=== PATIENT | male | born 1975 | race Caucasian/White ===

== ENCOUNTER 2019-11-02 08:20 | Outpatient (CLI) | payer OTHER, SELFPAY ==
[2019-11-02 09:17] LABS: Alanine Aminotransferase 33 U/L (4-50); Albumin Level 4.3 g/dL (3.5-5.1); Alkaline Phosphatase 57 U/L (38-126); Aspartate Amino Transferase 31 U/L (17-59); Bilirubin,Total 0.6 mg/dL (0.2-1.3); Blood Urea Nitrogen 27 mg/dL (9-20); Carbon Dioxide 26 mmol/L (22-30); Chloride 106 mmol/L (98-107); Cholesterol 229 mg/dL (0-200); Estimated Glomerular Filt Rate > 60; Glucose 95 mg/dL (75-110); HDL Direct 28 mg/dL; Potassium 3.9 mmol/L (3.4-5.0); Sodium 139 mmol/L (137-145); Triglycerides 216 mg/dL (<150)
[2019-11-02 09:34] LABS: LDL Cholesterol Direct 143 mg/dL
[2019-11-02 09:54] LABS: Prostate Specific Antigen 0.3 ng/mL (< OR = 4.0)
[2019-11-08 14:41] LABS: Testosterone Total 426 ng/dL (250-1100)
== END 2019-11-02 08:21 | disposition home or self-care (01) ==
LOC: ANHLAB 08:21
PROVIDERS: PCP Family Medicine; Visit Provider Physician Assistant Medical
DX: E78.2 Mixed hyperlipidemia (principal); Z12.5 Encounter for screening for malignant neoplasm of prostate; R53.83 Other fatigue
CPT/HCPCS: 36415; 80053; 80061; 84153; 84403; G0103

== ENCOUNTER 2023-06-13 11:12 | Emergency (ER) | payer OTHER, SELFPAY ==
[2023-06-13 11:40] VITALS: BP 133/77; PULSE 77; RESP 20; TEMP 36.6; O2SAT 97
--- NOTE | 2023-06-13 11:55 | ED.URI ---
HPI - URI/Sore Throat General Chief Complaint: Upper Respiratory Infection Stated Complaint: Fever,Chest Congestion,Cough Time Seen by Provider: 06/13/23 11:59 Source: patient, RN notes reviewed and old records reviewed Mode of arrival: ambulatory Limitations: no limitations History of Present Illness HPI Narrative: 48-year-old male presents to the [facility] with complaints fever, chest congestion and cough started on Thursday, 4 days ago. Reports taking Tylenol flu. Denies chest pain shortness breath. Denies abdominal pain Related Data Home Medications Medication Instructions Recorded Confirmed rosuvastatin 20 mg tablet (Crestor) 20 mg PO DAILY 05/28/21 06/13/23 Allergies Allergy/AdvReac Type Severity Reaction Status Date / Time Penicillins AdvReac Mild Rash Verified 06/13/23 11:34 Review of Systems Review of Systems: All systems reviewed & are unremarkable except as noted in HPI and below Constitutional: Constitutional: Reports as per HPI, Reports body ache(s), Reports fatigue, Reports fever(s) and Reports headache(s) Eyes: Eyes: Reports no additional eye complaints ENT: Reports as per HPI and Reports nasal congestion Cardiovascular: Cardiovascular: Reports no additional cardiovascular complaints, Denies chest pain and Denies dyspnea Respiratory: Respiratory: Reports as per HPI, Denies chest congestion, Reports cough and Denies dyspnea Gastrointestinal: Gastrointestinal: Reports no additional gastrointestinal complaints, Denies abdominal pain, Denies nausea and Denies vomiting Musculoskeletal: Musculoskeletal: Reports no additional musculoskeletal complaints Integumentary/Breasts: Skin/Breast: Reports system reviewed and no additional complaints, except as docu Neurologic: Reports system reviewed and no additional complaints, except as documented Psychiatric: Psychiatric: Reports no additional psychiatric complaints Allergic/Immunologic: Allergic/Immunologic: Reports no additional allergic/immunologic complaints [facility] Past Medical History Medical History BMI 36.0-36.9,adult BMI over 35 Hay fever Suprapubic pain Family History Family History Father Family history of heart disease in male family member before age 55 Hypertension Acute myocardial infarction Mother MYLK2-related hypertropic cardiomyopathy Sibling No problems noted. 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 Gender identity (if verbalized by the patient): Male Sexual Orientation (if Verbalized by the Patient): Straight or Heterosexual Spiritual care concerns: No Agree to blood products: Yes Comments At the time of my signature, I reviewed and agree with the nursing past medical, surgical, social, and family history. There is no relevant family history pertinent to the patient complaint. Exam Const: General: cooperative, healthy appearing, comfortable, no acute distress, well developed, alert and well nourished Nutritional Appearance: well nourished Orientation/consciousness: patient oriented x3 Limitations: no limitations HENMT: Head: normal to inspection Ears: hearing grossly normal bilaterally, external ears normal, TM's normal bilaterally, EAC's normal, mastoids normal and no periauricular adenopathy Face/Nose/Sinus: Normal external nose present, Normal nares present, Normal nasal mucous membranes and turbinates prese
== END 2023-06-13 12:08 | disposition home or self-care (01) ==
PROVIDERS: Emergency Provider Nurse Practitioner; PCP Family Medicine
DX: J10.1 Influenza due to other identified influenza virus with other respiratory manifestations (principal); Z20.822 Contact with and (suspected) exposure to COVID-19
CPT/HCPCS: 87426; 87804; 99213; G0463

== ENCOUNTER 2024-09-23 12:21 | Outpatient (CLI) | payer OTHER, SELFPAY ==
--- NOTE | ~2024-09-23 | XR_ITS ---
XR hand LT 2V 09/23/2024 12:40 INDICATION: Left hand pain PROCEDURE: 3 views left hand COMPARISON: No prior studies for comparison. FINDINGS: Fracture, dislocation or subluxation is not identified. The soft tissues appear within norm al limits. No foreign bodies are identified. IMPRESSION: 1: NO ACUTE BONE OR JOINT ABNORMALITY IDENTIFIED. Reviewed, dictated and finalized at location A.
--- OUTSIDE RECORDS SUMMARY | 2024-09-23 12:25 | XMS_ITS | Clinical Summary ---
Author Organization [facility] Address [address] [place] [address] Care Team Providers Care Film Splicer Name Role Phone Alexandr Logan MD Primary Care Provider + [phone] Allergies Active Allergy Reactions Criticality Noted Date Comments Penicillins Hives Medium Medications ibuprofen (ADVIL,MOTRIN) 600 mg tablet Take 1 tablet (600 mg total) by mouth every 6 (six) hours as needed for pain Active multivitamin capsuleIndicati ons:Vitamin Deficiency Prevention Take 1 capsule by mouth every morning Active cyanocobalamin (Vitamin B-12) 1,000 mcg tabletIndicatio ns:Prevention of Vitamin B12 Deficiency Take 1 tablet (1,000 mcg total) by mouth every morning Active omeprazole (PriLOSEC) 20 mg capsule Take 1 capsule (20 mg total) by mouth daily As needed Active rosuvastatin (CRESTOR) 10 mg tablet TAKE 1 TABLET(10 MG) BY MOUTH DAILY 90 tablet 1 3 Active amLODIPine (NORVASC) 2.5 mg tablet TAKE 1 TABLET(2.5 MG) BY MOUTH DAILY 30 tablet 11 3 Active benzonatate (TESSALON) 200 mg capsuleIndicati ons:Acute cough Take 1 capsule (200 mg total) by mouth 3 (three) times a day as needed for cough keep tessalon out of reach of children, especially children under the age of 10, due to possible serious risk such as if ingested by children under the age of 10. 30 capsule 4 Active albuterol HFA (PROVENTIL HFA,VENTOLIN HFA,PROAIR HFA) 90 mcg/actuation inhalerIndicati ons:History of wheezing Inhale 2 puffs every 6 (six) hours as needed for wheezing 1 each 4 04/18/20 25 Active Active Problems Problem Noted Date Diagnosed Date Primary hypertension 09/08/2022 Assessment & Plan (09/08/2022 8:35 AM CDT): SBP controlled today. Continue Norvasc 2.5 mg daily. Log BP at home, I have asked him to notify us if his SBP is consistently greater than 140 at home. We can double his Norvasc to 5 mg if needed. Sleep apnea 09/08/2022 Assessment & Plan (09/08/2022 8:36 AM CDT): Needs updated WIN therapy prescription. Hyperlipidemia 09/08/2022 Assessment & Plan (09/08/2022 8:38 AM CDT): LDL optimal in December 2021 at 77. Continue Crestor 10 mg daily. Mass of left hand 12/11/2017 Overview (12/11/2017): Added automatically from request for surgery [id number] Neoplasm of connective and soft tissue 8 Cardiomyopathy 02/23/2012 Medical History Medical History Date Comments Hyperlipidemia Sleep apnea Family History Medical History Relation Name Comments Heart attack Father Heart attack Father's Sister Heart disease Mother Relation Name Status Comments Father Father's Sister Mother Social History Tobacco Use Types Packs/Day Years Used Date Smoking Tobacco: Never Smokeless Tobacco: Never Alcohol Use Standard Drinks/Week Comments Yes 4 (1 standard drink = 0.6 oz pur e alcohol) Sex and Gender Information Value Date Recorded Sex Assigned at Not on file Legal Sex 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 Gender Identity Not on file Sexual Orientation Not on file Obstetrics History Last Filed Vital Signs Vital Sign Reading Time Taken Comments Blood Pressure 136/78 04/18/2024 8:19 AM EXTRACTOR MACHINE OPERATOR Pulse 75 04/18/2024 8:19 AM EXTRACTOR MACHINE OPERATOR Temperature 37.1 C (98.8 F) 04/18/2024 8:19 AM EXTRACTOR MACHINE OPERATOR Respiratory Rate 24 04/18/2024 8:19 AM EXTRACTOR MACHINE OPERATOR Oxygen Saturation 96% 04/18/2024 8:19 AM EXTRACTOR MACHINE OPERATOR Inhaled Oxygen Concentration - - Weight 125.2 kg (276 lb) 04/18/2024 8:19 AM EXTRACTOR MACHINE OPERATOR Height 182.9 cm (6') 09/08/2022 8:17 AM CDT Body Mass Index 37.43 09/08/2022 8:17 AM CDT Plan of Treatment Health Maintenance Due Date Last Done Comments Colon Cancer Screening-Colonoscopy 1977 Depression Screening 1977 Hepatitis C Screening 1977 DTaP/Tdap/Td Vaccine (1 - Tdap) 1988 Hepatitis B Screening 1995 Regular Well Visit/Exam 18-64 1995 Influenza Vaccine (Season Ended) 2024 Pneumococcal vaccine <65 Aged Out No longer eligible based on patient's age to complete this topic Insurance [facility] Address: [address] [address] [place] [address] [facility] OPEN [facility]ESS [facility]PP[facility] Address: [address] [place]RO[place] Escobar [address] [facility] H[facility]/PPO Address: [facility] [id number] [place] [id number] [facility] CHOICE PLUS [facility] Address: [address] [address] [place] [address] CHOICE PLUS [facility] H[facility]/PPO Address: [address] [address] [place] [address] Advance Directives For more information, please contact: [phone] * Full Code (Latest Code Status on File) Date Activated Date Inactivated Comments 12/31/2017 10:22 AM 12/31/2017 3:52 PM Care Teams Film Splicer Relationship Specialty Start Date End Date Alexandr Logan MD PCP - General Family Medicine 11/30/17
--- OUTSIDE RECORDS SUMMARY | 2024-09-23 12:25 | XMS_ITS | Clinical Summary ---
Author Organization [facility] Address [address] [place] [address] Care Team Providers Care Senior Ios Software Engineer Name Role Phone Alexandr Logan MD Primary Care Provider [phone] Source Comments [facility],non-owned Affiliates and Associated Physician Practices is amultiple site organization consisting of ambulatory clinics and hospital sitesin [place], [place], [place] and [place]. This disclosure is being madepursuant to the Care Everywhere program and may not contain all information available regarding this patient. Last updated 18.[facility] Allergies Active Allergy Reactions Criticality Noted Date Comments Penicillins Rash Medium 02/13/2018 Medications * Be aware that medications may not be up to date on this document. Alwaysverify current medications with the patient. amLODIPine (Norvasc) 2.5 MG tablet Take 1 (one) tablet by mouth once daily 08/01/2024 Active rosuvastatin (Crestor) 20 MG tablet Take 1 (one) tablet by mouth once daily 08/01/2024 Active Active Problems No known active problems Encounters Date Type Department Care Team Description 08/10/2024 10:00 AM CDT Office Visit [facility] - [facility] Services [address] [place] [address] Pardeep Flaherty MD Vitamin D deficiency (Primary Dx); Screening for diabetes mellitus; Hypertriglyceridemia; Fatigue, unspecified type 08/10/2024 Travel from Last 3 Months Family History Medical History Relation Name Comments Sleep Disorder - Sleep apnea Daughter awaiting CPAP Sleep Disorder - Other Father snore d a lot Sleep Disorder - Other Mother RLS Relation Name Status Comments Daughter Alive Father Alive Mother Social History Tobacco Use Types Packs/Day Years Used Date Smoking Tobacco: Never Smokeless Tobacco: Never Tobacco Cessation:Counseling Given: Not Answered Alcohol Use Standard Drinks/Week Comments Yes 2 (1 standard drink = 0.6 oz pur e alcohol) Sex and Gender Information Value Date Recorded Sex Assigned at Not on file Legal Sex Male 12:36 PM CDT Gender Identity Not on file Sexual Orientation Not on file 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 Not on file Not on file Last Filed Vital Signs Vital Sign Reading Time Taken Comments Blood Pressure 184/78 08/10/2024 10:40 AM CDT Pulse 94 08/10/2024 10:40 AM CDT Temperature 36.7 C (98 F) 02/12/2018 12:43 PM CDT Respiratory Rate 20 02/12/2018 12:43 PM CDT Oxygen Saturation - - Inhaled Oxygen Concentration - - Weight 115.7 kg (255 lb) 08/10/2024 10:40 AM CDT Height 182.9 cm (6') 08/10/2024 10:40 AM CDT Body Mass Index 34.58 08/10/2024 10:40 AM CDT Plan of Treatment Upcoming Encounters Date Type Department Care Team (Late st Contact Info) Description 10/06/2024 10:00 AM CDT Office Visit [facility] - [facility] [address] [place] [address] Pardeep Flaherty MD [address] [facility] [address]L DIV OF PULMONARY/[place] [address] Health Maintenance Due Date Last Done Comments COLOGUARD (AGES 45-75) - COL ON CA SCREENING 1977 COLON MONITORING 1977 COLONOSCOPY - COLON CA SCREENING 1977 CT COLONOGRAPHY - COLON CA SCREENING 1977 Colorectal Cancer Screening 1977 FIT - COLON CA SCREENING 1977 FLEX SIG - COLON CA SCREENING 1977 HIV SCREENING 1992 HEPATITIS C SCREENING 04/03/1995 DTAP/TDAP/TD VACCINES (1 - Tdap) 1996 HEPATITIS B VACCINE (1 of 3 - 19+ 3-dose series) 1996 COVID-19 VACCINE (1 - 2023-2 5 season) 2023 DEPRESSION SCREENING 04/20/2024 SCREENING FOR DIABETES 08/10/2024 INFLUENZA VACCINE (Season Ended) 2024 ZOSTER VACCINE (1 of 2) 2027 HIB VACCINE Aged Out No longer eligi ble based on patient's age to complete this topic HPV VACCINE Aged Out No longer eligi ble based on patient's age to complete this topic MENINGOCOCCAL (Group B) VACC INE SHARED DECISION-MAKING Aged Out No longer eligibl e based on patient's age to complete this topic MENINGOCOCCAL GROUPS A/C/Y/W VACCINE Aged Out No longer eligible b ased on patient's age to complete this topic PNEUMOCOCCAL VACCINE Aged Out No long er eligible based on patient's age to complete this topic Insurance [facility] Care Teams Senior Ios Software Engineer Relationship Specialty Start Date End Date Alexandr Logan MD [address] [place] [address] PCP - General Family Medicine 02/13/18
--- OUTSIDE RECORDS SUMMARY | 2024-09-23 12:25 | XMS_ITS | Referral Summary ---
Author Organization [facility] Address [address] [place] [address] Care Team Providers Care Chainstitch Seat Joiner Name Role Phone Alexandr Logan MD Primary Care Provider + [phone] Allergies Active Allergy Reactions Criticality Noted Date [...] (12/11/2017): Added automatically from request for surgery [id number] Neoplasm of connective and soft tissue 8 Cardiomyopathy 02/23/2012 Social History Tobacco Use Types Packs/Day Years Used Date Smoking Tobacco: Never Smokeless Tobacco: Never Alcohol Use Standard Drinks/Week Comments Yes 4 (1 standard drink = 0.6 oz pur e alcohol) Sex and Gender Information Value Date Recorded Sex Assigned at Not on file Legal Sex Male 4:19 AM DELI BAKERY CLERK Gender Identity Not on file Sexual Orientation Not on file Last Filed Vital Signs Vital Sign Reading Time Taken Comments Blood Pressure 136/78 04/18/2024 8:19 AM DELI BAKERY CLERK Pulse 75 04/18/2024 8:19 AM DELI BAKERY CLERK Temperature 37.1 C (98.8 F) 04/18/2024 8:19 AM DELI BAKERY CLERK Respiratory Rate 24 04/18/2024 8:19 AM DELI BAKERY CLERK Oxygen Saturation 96% 04/18/2024 8:19 AM DELI BAKERY CLERK Inhaled Oxygen Concentration - - Weight 125.2 kg (276 lb) 04/18/2024 8:19 AM DELI BAKERY CLERK Height 182.9 cm (6') 09/08/2022 8:17 AM CDT Body Mass Index 37.43 09/08/2022 8:17 AM CDT Plan of Treatment Not on file Insurance C[employer]NA OPEN ACCESS [employer] [facility] [facility] CHOICE PLUS CHOICE PLUS Advance Directives For more information, please contact: [phone] * Full Code (Latest Code Status on File) Date Activated Date Inactivated Comments 12/31/2017 10:22 AM 12/31/2017 3:52 PM Care Teams Chainstitch Seat Joiner Relationship Specialty Start Date End Date Alexandr Logan MD PCP - General Family Medicine 11/30/17
--- OUTSIDE RECORDS SUMMARY | 2024-09-23 12:26 | XMS_ITS | Continuity of Care Document ---
Author Organization [facility] Address [address] [place] [address] [place] [address] Phone Care Team Providers Care Associate Material Handler Name Role Phone Medardo Randall MD Unavailable Unavailable Procedures Procedure Date Office Consultation Advance Directives Directive Yes / No Effective Date File Name No Information Encounters Encounter Description Practice Location Reason(s) For Visit Diagnoses Date Provider Providers Copied on Encounter Office Consultation [facility], [address], [place], [place], [id number], [place] tel:[phone] [facility] No Information [address] Prakash Batres. [address] [facility] [address], [place], [place], [address], [place]. tel:[phone] Referring Provider: Alexandr Logan MD F, [address] [place], [address]. tel:[phone] Family History Family Member Type Diagnosis Age At Onset No Information Payers Payer name Insurance type Covered constitution party ID Authoriza tijyoti(s) [facility] Commercial CI [id number] Social History Type Description Quantity Date Captured Comments Sex Male Smoking Status No Information Chief Complaint And Reason For Visit No Information Reason For Referral Reason For Referral No Information History Of Present Illness Encounter Date Complaint History Of Prese nt Illness No Information Functional Status Date Functional Assessmen t No Information Instructions Date Instruction Additional Infor mation No Information Assessments Type Assessment Date No Information Patient Care Teams Name Effective Dates (start - stop) Status Members No Information
--- OUTSIDE RECORDS SUMMARY | 2024-09-23 12:26 | XMS_ITS | Data Portability ---
Author Organization [place] [facility] [place] , [facility] Address [address] [place] [address] Assessment No assessment recorded. Plan of Treatment Reminders Order Date Submit Date Provider Last Modified By Organization Details Last Modified Time Details Appointments None recorde d. Lab None recorde d. Referral None recorde d. Procedures None recorde d. Surgeries None recorde d. Imaging None recorde d. Medication Orders prometh azine-D M 6.25 mg-15 mg/5 mL oral syrup 024 04/10/20 24 [id number], [address] [place], [place], [id number], 11:48:39 Patient TargetsNo targets recorded. Patient Instructions Encounter Date Encounter Id Patient Instructions Last Modified By Organization Details Last Modified Time 04/10/2024 [id number] upper respirator y infection (cold): care instructions [id number] Not available 04/10/2024 11:48:33 Reason for Referral None Reported. Problems Name Problem SNOMED Code Status Onset Date Resolution Date Notes Provider Name and Address Organization Details Recorded Time Hypertensive disorder 13491247 Active 2019 YISSEL Messer [address], [address], [place] [facility] 11:44:53 Hyperlipidemi a 51030087 Active 2019 YISSEL Messer [address], [address], [place] [facility] 4 11:45:10 Problem Notes None recorded. Medical Equipment None Reported. Allergies Allergen ID Allergen Name Allergen Category Reaction Reaction Severity Criticality Documentation Date Start Date Code Code System Note Provider Name and Address Organization Details Recorded Time 159235 Product containin g penicilli n (product) medicatio n hives Not available Not available 04/10/20241993 18211 8001 SNOMED YISSEL Messer 1 [address], [place], [address] [facility] [place] [facility] 11:44:26 Medications Name Sig Start Date Stop Date Status Note LastModified by Organization Details LastModified Time promethazine -DM 6.25 mg-15 mg/5 mL oral syrup Take 5 mL every 4 hours by oral route for 5 days. 2023 active Not Available Not Available Not Avai lable doxycycline hyclate 100 mg capsule active Not Available Not Available N ot Available amlodipine active Not Available Not Av ailable Not Available rosuvastatin active Not Available Not Available Not Available UNLISTED MEDICATION [Migrated medication name:] Benzonatate 200 mg capsule:: active Not Available Not Available No t Available UNLISTED MEDICATION [Migrated medication name:] Albuterol 90 mcg/inh aerosol:: active Not Available Not Available No t Available Vitals None Recorded Social History None recorded. Functional Status None recorded. Mental Status None recorded. Family History Nothing Reported. Medical History No medical history recorded. Past Encounters Encounter ID Performer Location Encounter Start Date Encounter Closed Date Diagnosis/Indication Diagnosis SNOMED-CT Code Diagnosis ICD10 Code Diagnosis Note [id number] YISSEL Messer [facility] [address] [place] [address] 04/10/2024 11:33:14 04/10/2024 17:47:31 Acute upper respiratory infection 15625498 J06.9 Ibuprofen Q4-6H PRN pain/fever , max 3200 mg/dayAdeq uate hydrationA dequate restFlu testingF/U if symptoms worsen or do not resolve Health Concerns Section Related Observation LastModified by Organization Detai ls LastModified Time None Recorded Concern Status LastModified by Organization Details LastModified Time None Recorded Advance Directives Directive None Recorded Payers Insurance Date Sequence Insurance Name Policy Number Policy Delgado Covered Member ID Delgado Member ID Guarantor Name 04/10/2024 [facility] [id number] Luis Camejo [id number] Luis Camejo 04/22/2024 1 [facility] [id number] Luis Camejo [id number] Luis Camejo 04/10/2024 1 *SELF PAY* [place] Camejo 04/10/2024 3 *SELF PAY* [id number] Luis Camejo [id number] Luis Camejo 04/10/2024 2 [facility] [id number] Luis Camejo [id number] Luis Camejo Notes Date Note Type Note Provider Name and Address Organization Details Recorded Time 04/10/2024 text/html Call connected, patient greeted. Patient name, , telephone number, and location verified verbally with the patient. Telemedicine limitations reviewed, answered all questions the patient had about the telehealth interaction, and verbal consent obtained to treat. Clinician attests they are physically located in the following state at the time of visit: [place] HPI: 49 y/o male c/o fever. Highest fever 101.0 F, 100.1 F this morning. Treated with ibuprofen. Reports intermittent nasal congestion, runny nose with clear drainage, post nasal drip, throat irritation, non productive cough x 4 days. Resolved sinus headache. Denies sinus pressure, n/v/d, abdominal pain. Treated symptoms with amalia holt night time. YISSEL Messer 1 [facility] [address], [place], [address], [facility] 04/10/2024 11:54:27
== END 2024-09-23 12:22 | disposition home or self-care (01) ==
PROVIDERS: PCP Family Medicine; Referring Provider Plastic Surgery; Visit Provider Nurse Practitioner Adult Health
DX: M79.642 Pain in left hand (principal)
CPT/HCPCS: 73120

== ENCOUNTER 2024-10-05 13:48 | Outpatient (CLI) | payer OTHER, SELFPAY ==
--- NOTE | ~2024-10-05 | MR_ITS ---
MRI of the left thumb CLINICAL HISTORY: Mass, lump TECHNIQUE: Axial T1-weighted and T2 fat-sat images, coronal T1-weighted and proton-density fat-sat im ages, and sagittal T1-weighted and T2 fat-sat images were acquired. Correlation with ultrasound of the thumb performed same day. FINDINGS: Bone marrow signals are unremarkable. No fracture or bone marrow edema. Joint spaces of the thumb are intact. No joint effusion. No degenerative or erosive arthropathy. Collateral ligaments at the first MCP joint and interphalangeal joint of the thumb are intact. At the area of clinical concern as denoted by the marker, there is a dilated tubular structure measur ing up to 6 mm in diameter, and approximately 3 cm in length, suggestive of dilated venous or other v ascular structure. No other soft tissue abnormality seen. No other mass lesion or fluid collection se en. Visualized musculature unremarkable. Visualized flexor and extensor tendons are intact. IMPRESSION: Dilated tubular structure at the area of clinical concern superficially, most compatible with dilated venous or other vascular structure. This appears to correlate with sonographic findings performed to day as well. No definite soft tissue mass evident, though postcontrast imaging would be required for better evaluation for subtle soft tissue mass. Reviewed, dictated and finalized at location . IMPRESSION: Dilated tubular structure at the area of clinical concern superficially, most c ompatible with dilated venous or other vascular structure. This appears to vandana elate with sonographic findings performed today as well. No definite soft tissu e mass evident, though postcontrast imaging would be required for better evalua tion for subtle soft tissue mass.
== END 2024-10-05 13:49 | disposition home or self-care (01) ==
PROVIDERS: PCP Plastic Surgery; Visit Provider Nurse Practitioner Adult Health
DX: R22.32 Localized swelling, mass and lump, left upper limb (principal)
CPT/HCPCS: 73218

== ENCOUNTER 2024-10-05 13:51 | Outpatient (CLI) | payer OTHER, SELFPAY ==
--- NOTE | ~2024-10-05 | US_ITS ---
EXAM: Focused ultrasound examination of the soft tissues of the base of the left first digit HISTORY: left 1st webspace mass/cyst eval TECHNIQUE: Sonographic evaluation of the soft tissues of the base of the left first digit was perform ed assessing grayscale appearance and color Doppler flow. COMPARISON: None. FINDINGS: Sonographic evaluation of the soft tissues of the base of the left first digit demonstrate an irregul ar focus of mixed echogenicity with extensive vascularity. The vessels are easily compressible. IMPRESSION: Irregular focus of mixed echogenicity with extensive vascularity within the area of clinical concern. Reviewed, dictated and finalized at location A. IMPRESSION: Irregular focus of mixed echogenicity with extensive vascularity within the are a of clinical concern.
== END 2024-10-05 13:52 | disposition home or self-care (01) ==
LOC: MICIMG 13:51
PROVIDERS: PCP Plastic Surgery; Visit Provider Plastic Surgery
DX: R93.6 Abnormal findings on diagnostic imaging of limbs (principal)
CPT/HCPCS: 76882

== ENCOUNTER 2024-10-17 00:52 | Day surgery (SDC) | payer OTHER, SELFPAY ==
--- NOTE | 2024-09-22 08:56 | SUR.PREOP ---
Pt called this am to discuss changing his arrival time on October 17 due to the doctor not being available at 730. Patient voiced understand of time change and was ok with it. Message sent to office as well.
[2024-10-03 13:25] VITALS: BMI 34.7
[2024-10-17 07:20] VITALS: BP 117/88; PULSE 71; RESP 16; TEMP 36.4; O2SAT 96
[2024-10-17] MEDS: LACTATED RINGERS 1,000 ML 150 ML IV CONT (07:29)
--- NOTE | 2024-10-17 07:45 | WPDANESEPPF ---
Anes - Initial Pre Proc Eval Procedure: Operation Date: 10/17/24 08:30 Proposed Procedures p Screening Colonoscopy - Andrae Dean DO Date/Time: 10/17/24 07:45 Surgeon: Andrae Dean DO Pre Op Diagnosis: Neoplasm screening Patient Data Age: 49 Gender: M Height: 1.83 m Weight: 116.7 kg Last Vital Signs Temp 36.4 C L 10/17/24 07:20 Pulse 71 10/17/24 07:20 Resp 16 10/17/24 07:20 BP 117/88 10/17/24 07:20 Pulse Ox 96 10/17/24 07:20 O2 Del Method Room Air 10/17/24 07:20 Allergies Allergy/AdvReac Type Severity Reaction Status Date / Time Penicillins AdvReac Mild Rash Verified 10/17/24 07:17 Home Medications ?Medication ?Instructions ?Recorded ?Confirmed ?Type omeprazole 40 mg capsule,delayed 40 mg PO DAILY PRN gerd #90 caps 09/02/23 10/03/24 Rx release fluticasone propionate 50 2 spray intranasal DAILY #18 mL 02/08/24 10/17/24 Rx mcg/actuation nasal spray,suspension (Flonase Allergy Relief) albuterol sulfate 90 mcg/actuation 1 inh inhalation Q4H PRN shortness 03/24/24 10/03/24 Rx aerosol inhaler of breath or wheezing #8.5 grams amlodipine 2.5 mg tablet 2.5 mg PO DAILY #90 tabs 03/24/24 10/17/24 Rx rosuvastatin 20 mg tablet 20 mg PO DAILY #90 tabs 03/24/24 10/17/24 Rx Patient hx anesthesia problems: none Family hx anesthesia problems: none Results Review: All pre-operative results and documents have been reviewed as part of the pre-operative evaluation. [facility] Past Medical History Medical History (Updated 10/17/24 @ 07:46 by Sd Caballero MD) Mixed hyperlipidemia Obstructive sleep apnea Subcutaneous mass of left thumb Pain in left hand Encounter for screening colonoscopy Vitamin D deficiency Hay fever Suprapubic pain Family History Family History Father Family history of heart disease in male family member before age 55 Hypertension Acute myocardial infarction Mother MYLK2-related hypertropic cardiomyopathy Sibling No problems noted. 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 Gender identity (if verbalized by the patient): Male Sexual Orientation (if Verbalized by the Patient): Straight or Heterosexual Spiritual care concerns: No Agree to blood products: Yes Anes - Eval Final PreProcedure Day of Procedure 10/17/24 07:45 Patient weight: obese Heart: regular rate and rhythm Lungs: clear to auscultation Airway: Mallampati scale class II Neurological: alert and oriented Last oral intake: >/= 8 hours ASA classification: III Emergent: no Anesthetic plan: proceed Anesthesia type and monitoring: general GIVS and standard monitoring Results Review: All pre-operative results and documents have been reviewed as part of the pre-operative evaluation. Informed Consent: The patient's anesthetic plan and its attendant risks and benefits were discussed with the patient/family/POA. Questions were solicited and answers provided to the satisfaction of the patient/family/POA.
--- NOTE | 2024-10-17 08:47 | PM.IMHP ---
H&P: HPI History of Present Illness Date/Time: 10/17/24 08:47 Chief Complaint: Screening for colorectal cancer Narrative: this is a 49-year-old man who presents for colonoscopy. He had a colonoscopy about 10 years ago for stomach issues but says that was normal. He denies any hematochezia or melena. He denies any family history of colon cancer. Review of Systems Review of Systems: All systems reviewed & are unremarkable except as noted in HPI and below Constitutional: Constitutional: Denies chills, Denies fever(s), Denies headache(s) and Denies weight loss Eyes: Eyes: Denies change in vision ENT: Denies dizziness, Denies headache(s), Denies neck mass and Denies throat swelling Cardiovascular: Cardiovascular: Denies chest pain, Denies lightheadedness and Denies dyspnea Respiratory: Respiratory: Denies cough, Denies dyspnea and Denies wheezing Gastrointestinal: Gastrointestinal: Denies abdominal pain, Denies change in bowel habits, Denies nausea and Denies vomiting Genitourinary: Genitourinary: Denies hematuria and Denies dysuria Musculoskeletal: Musculoskeletal: Reports as per HPI Integumentary/Breasts: Skin/Breast: Reports as per HPI Neurologic: Denies dizziness and Denies headache(s) Allergic/Immunologic: Allergic/Immunologic: Denies throat swelling and Denies wheezing PMFSH Past Medical History Medical History (Updated 10/17/24 @ 07:46 by Sd Caballero MD) Mixed hyperlipidemia Obstructive sleep apnea Subcutaneous mass of left thumb Pain in left hand Encounter for screening colonoscopy Vitamin D deficiency Hay fever Suprapubic pain Family History Family History Father Family history of heart disease in male family member before age 55 Hypertension Acute myocardial infarction Mother MYLK2-related hypertropic cardiomyopathy Sibling No problems noted. 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 Gender identity (if verbalized by the patient): Male Sexual Orientation (if Verbalized by the Patient): Straight or Heterosexual Spiritual care concerns: No Agree to blood products: Yes Meds Home Medications and Allergies Home Medications ?Medication ?Instructions ?Recorded ?Confirmed ?Type omeprazole 40 mg capsule,delayed 40 mg PO DAILY PRN gerd #90 caps 09/02/23 10/03/24 Rx release fluticasone propionate 50 2 spray intranasal DAILY #18 mL 02/08/24 10/17/24 Rx mcg/actuation nasal spray,suspension (Flonase Allergy Relief) albuterol sulfate 90 mcg/actuation 1 inh inhalation Q4H PRN shortness 03/24/24 10/03/24 Rx aerosol inhaler of breath or wheezing #8.5 grams amlodipine 2.5 mg tablet 2.5 mg PO DAILY #90 tabs 03/24/24 10/17/24 Rx rosuvastatin 20 mg tablet 20 mg PO DAILY #90 tabs 03/24/24 10/17/24 Rx Allergies Allergy/AdvReac Type Severity Reaction Status Date / Time Penicillins AdvReac Mild Rash Verified 10/17/24 07:17 Vital Signs Vital Signs - 24 hr 10/17/24 07:20 Temperature 97.5 F L Pulse Rate 71 Respiratory Rate 16 Blood Pressure 117/88 Pulse Oximetry 96 Oxygen Delivery Room Air Exam Const: General: no acute distress and alert Orientation/consciousness: patient oriented x3 HENMT: Head: normocephalic and atraumatic Ears: hearing grossly normal bilaterally Face/Nose/Sinus: Normal nares present Mouth: Yes Normal oral and palatal mucosa present Eyes: Periorbital: periorbital findings normal Sclera: sclerae normal EOM: EOMs intact bilaterally Neck: Neck: normal visual inspection, no lymphadenopathy and trachea midline Chest: Chest palpation & inspection: normal inspection of the chest Resp: Effort & Inspection: normal respiratory effort Auscultation: clear to auscultation bilaterally Cardio: Jugular venous distension: no JVD Rate: regular rate Rhythm: regular rhythm Heart sounds: S1 normal heart sound present and S2 normal heart sound present Peripheral pulses: Peripheral pulses 2+ throughout GI: Inspection: normal to inspection GI Palp: Yes Soft to palpation, No Tenderness to palpation present (GI), No Guarding due to palpation present (GI) and No Rebound tenderness present Percussion: Yes normal to percussion Auscultation: normal bowel sounds : General: Yes no CVA tenderness Back/Spine/Pelvis: Back: no CVA tenderness Neuro: General: patient oriented x3, no focal motor deficits and CN's II-XI intact bilaterally Cognition (Neuro): normal cognition Speech: normal speech Motor exam (neuro): 5/5 motor strength present throughout Extrem: General: capillary refill normal and no clubbing, cyanosis or edema Assessment and Plan Assessment and plan (1) Encounter for screening colonoscopy: Code(s): Z12.11 - Encounter for screening for malignant neoplasm of colon Status: Acute Assessment and Plan: I have recommended colonoscopy. I have discussed the procedure, risks, benefits, and alternatives. Questions were answered. Patient is agreeable to proceed.
[2024-10-17 09:08] VITALS: BP 104/58; PULSE 78; RESP 16; O2SAT 97
[2024-10-17 09:18] VITALS: BP 107/68; PULSE 65; RESP 16; O2SAT 97
[2024-10-17 09:28] VITALS: BP 116/70; PULSE 66; RESP 16; O2SAT 100
== END 2024-10-17 09:34 | disposition home or self-care (01) ==
PROVIDERS: PCP Family Medicine; Visit Provider Surgery
PROC: 0DJD8ZZ Inspection of Lower Intestinal Tract, Via Natural or Artificial Opening Endoscopic (ICD-10-PCS; CPT 45378; principal; 2024-10-17 08:30)
DX: Z12.11 Encounter for screening for malignant neoplasm of colon (principal); Z87.891 Personal history of nicotine dependence; E66.9 Obesity, unspecified; Z68.34 Body mass index [BMI] 34.0-34.9, adult
CPT/HCPCS: 45378; J2003; J2704; J7120